=== PATIENT | female | born 1975 | race Caucasian/White ===

== ENCOUNTER 2025-05-02 21:47 | Emergency (ER) | payer OTHER ==
[~2025-05-02] VITALS: Ht 162.6 cm; Wt 79.5 kg
[2025-05-03] MEDS ORDERED: IOHEXOL 300 MG/ML 100 ML VIAL ONE (01:12)
[2025-05-03 01:20] LABS: PLATELET COUNT (AUTO) 186 K/uL (150-450); RED BLOOD CELL COUNT(AUTO) 4.51 MIL/uL (4.00-5.20); RED CELL DISTRIBUTION WIDTH 14.1 % (11.5-14.5); WHITE BLOOD COUNT (AUTO) 6.9 K/uL (4.5-11.0)
[2025-05-03 01:32] LABS: CALCIUM, TOTAL 9.0 mg/dL (8.8-10.5); CREATININE 0.66 mg/dL (0.60-1.30); GLOMERULAR FILTR. RATE CALC > 60 mL/min (>60); GLUCOSE,RANDOM 99 mg/dL (70-110); SODIUM SERUM 142 mmol/L (136-145); UREA NITROGEN, BLOOD 9 mg/dL (7-18)
[2025-05-03] MEDS: AMPICILLIN SODIUM/SULBACTAM NA 3 GM in SODIUM CHLORIDE 0.9% 100 ML IV ONE (01:38)
[2025-05-03] MEDS: KETOROLAC TROMETHAMINE 30 MG/ML VIAL IVP ONE (01:39)
[2025-05-03 02:00] VITALS: BP 123/67; PULSE 62; RESP 16; O2SAT 98
== END 2025-05-03 05:30 | disposition home or self-care (01) ==
LOC: EMS 21:47
DX: L03.213 Periorbital cellulitis (principal); H00.12 Chalazion right lower eyelid
CPT/HCPCS: 99285; 80048; 85025; 36415; 96365; 70487; 96375; J1885; J0295; J7050; Q9967